=== PATIENT | male | born 1970 ===

== ENCOUNTER 2021-05-20 10:30 | Outpatient (CLI) | payer BC, SELFPAY ==
--- NOTE | 2021-05-20 10:34 | FL_ITS ---
WS: [id number] [facility] 04 23 1970 BARIUM SWALLOW TECHNIQUE: Double contrast examination was performed with Gastrografin per order. Upright and TOVAR param ges were obtained. CLINICAL INFORMATION: Dysphagia. Reflux. COMPARISON: None. FINDINGS: Swallowing: Normal. Esophagus: Mild esophageal dysmotility with slightly delayed emptying. Small hiatal hernia with reflu x esophagitis distal esophagus. Gastroesophageal reflux: Mild reflux in the supine imaging Fluoroscopy time: 2 minutes. FL/FL barium swallow gastro [id number] IMPRESSION: 1. Mild esophageal dysmotility with slightly delayed emptying. No strictures. 2. Small hiatal hernia with mild reflux in the supine position. 3. Evidence of reflux esophagitis in the distal esophagus.
[2021-05-20] MEDS: diatrizoate meglumine 120 mL Sol PO (11:13)
== END 2021-05-20 10:31 | disposition home or self-care (01) ==
LOC: RADWPI 10:32 → RAD 10:34
PROVIDERS: PCP Family Medicine; Visit Provider Family Medicine
DX: K21.00 Gastro-esophageal reflux disease with esophagitis, without bleeding (principal); R13.10 Dysphagia, unspecified; K44.9 Diaphragmatic hernia without obstruction or gangrene
CPT/HCPCS: 74220

== ENCOUNTER → 2021-07-01 15:36 | Outpatient (BNVA) | payer BC, SELFPAY | PROVIDERS: PCP Family Medicine; Visit Provider Family Medicine | DX: D75.1 Secondary polycythemia (principal); G44.229 Chronic tension-type headache, not intractable; K21.00 Gastro-esophageal reflux disease with esophagitis, without bleeding | CPT/HCPCS: 81000; 85018 ==

== ENCOUNTER → 2021-07-24 09:16 | Outpatient (BNVA) | payer BC, SELFPAY | PROVIDERS: PCP Family Medicine; Referring Provider Family Medicine; Visit Provider Podiatrist Foot & Ankle Surgery | DX: M79.89 Other specified soft tissue disorders (principal) | CPT/HCPCS: 73630 ==

== ENCOUNTER 2021-07-25 09:20 | Outpatient (CLI) | payer BC, SELFPAY ==
--- NOTE | 2021-07-25 09:30 | USCV_ITS ---
Courtney Colmenares Age: 51 Gender: M : 1970 Exam Date: 07/25/2021 09:52 Ordering Phys: Jason Willett DPM Technologist: Exam Location: [facility] [place]_ Indication: RULE OUT DVT PROCEDURES: Venous duplex imaging was performed in only the right lower extremity. The following venous structures were evaluated: common femoral vein, profunda vein, proximal portion of the greater saphenous vein, superficial femoral vein, and the popliteal vein. In addition, the posterior tibial and peroneal trunk were evaluated. Serial compression, augmentation maneuvers, and spectral Doppler flow evaluation were performed. FINDINGS: Normal 2-D Doppler and augmentation and compressibility throughout the lower extremity venous structures. Additional imaging through the proximal calf veins also reveals no thrombus. Limited evaluation of the greater saphenous vein is patent with no thrombus. CONCLUSIONS No DVT right lower extremity. Dr. Nancy Jefferson DO (Electronically Signed) Final Date: 25 July 2021 11:07 S
== END 2021-07-25 09:21 | disposition home or self-care (01) ==
LOC: RAD 09:24
PROVIDERS: PCP Family Medicine; Visit Provider Podiatrist Foot & Ankle Surgery
DX: I73.9 Peripheral vascular disease, unspecified (principal)
CPT/HCPCS: 93971

== ENCOUNTER → 2021-10-22 14:38 | Outpatient (BNVA) | payer BC, SELFPAY | PROVIDERS: PCP Family Medicine; Visit Provider Family Medicine | DX: K83.1 Obstruction of bile duct (principal); K21.00 Gastro-esophageal reflux disease with esophagitis, without bleeding | CPT/HCPCS: 80053; 82150; 85025 ==

== ENCOUNTER 2021-10-31 09:14 | Outpatient (CLI) | payer BC, SELFPAY ==
--- NOTE | 2021-10-31 11:00 | CT_ITS ---
WS: [id number] CT ABDOMEN PELVIS TECHNIQUE: Contrast-enhanced CT of the abdomen and pelvis with coronal and sagittal reformatted image s. CLINICAL INFORMATION: abdominal pain white stools COMPARISON: CT 10 13,015 DLP: [id number] scans at [facility] use at least one of these dose optimization techniques: automated e xposure control; mA and/or kV adjustment per patient size (includes targeted exams where dose is matc hed to clinical indication); or iterative reconstruction. FINDINGS: Diffuse fatty infiltration of the liver. Normal portal vein and splenic vein. Normal spleen. Normal G E junction. Lung bases are well aerated. Adrenal glands are normal. Normal renal parenchymal enhancem ent. No hydronephrosis. Small renal cysts. Adrenal glands are normal. Small fat-containing umbilical hernia. Normal appendix in the right lower quadrant. Mild right colon constipation. Normal sigmoid colon. No evidence of high-grade small or large bowel obstruction. Gallbladder is cont racted. No free fluid in the pelvis. Normal lumbar spine. CT/CT abdomen pelvis w con* [id number] IMPRESSION: 1. Mild diffuse fatty infiltration of the liver. 2. Normal caliber abdominal aorta. 3. Mild right colon constipation. 4. Normal appendix in the right lower quadrant. 5. No hydronephrosis in either kidney. Small renal cysts. 6. No abdominal or pelvic lymphadenopathy. 7. No other significant findings.
[2021-10-31] MEDS: iohexol 350 mg/mL 100 mL Btl IV (13:21)
== END 2021-10-31 09:15 | disposition home or self-care (01) ==
PROVIDERS: PCP Family Medicine; Visit Provider Family Medicine
DX: R10.9 Unspecified abdominal pain (principal); K76.0 Fatty (change of) liver, not elsewhere classified; K59.00 Constipation, unspecified; K83.1 Obstruction of bile duct
CPT/HCPCS: 74177; 80053; 82150; 85025; Q9967

== ENCOUNTER 2021-11-04 07:11 | Outpatient (CLI) | payer BC, SELFPAY ==
--- NOTE | 2021-11-04 07:15 | USCV_ITS ---
Courtney Colmenares Age: 51 Gender: M : 1970 Exam Date: 11/04/2021 07:33 Ordering Phys: Jason Willett DPM Technologist: FRENCH Exam Location: [facility] [place] Indication: HISTORY: PROCEDURES: FINDINGS: No reflux noted at this time. The veins were found to be easily compressible with spontaneous blood flow. Non pulsatile flow pattern. CONCLUSIONS No evidence of DVT in the above-mentioned identifiable veins. No significant venous reflux Relatively small caliber veins in the below-knee level Dr Jazzmine Miller MD [facility] (Electronically Signed) Final Date: 05 November 2021 00:11 S
== END 2021-11-04 07:12 | disposition home or self-care (01) ==
LOC: RAD 07:12
PROVIDERS: PCP Family Medicine; Visit Provider Podiatrist Foot & Ankle Surgery
DX: R60.0 Localized edema (principal)
CPT/HCPCS: 93971

== ENCOUNTER → 2022-05-19 11:10 | Outpatient (BNVA) | payer BC, SELFPAY | PROVIDERS: PCP Family Medicine; Visit Provider Family Medicine | DX: R33.9 Retention of urine, unspecified (principal); D75.1 Secondary polycythemia; N41.9 Inflammatory disease of prostate, unspecified | CPT/HCPCS: 80053; 81000; 84153; 85025 ==

== ENCOUNTER → 2023-08-05 10:08 | Outpatient (BNVA) | payer BC, SELFPAY | PROVIDERS: PCP Family Medicine; Visit Provider Family Medicine | DX: J18.9 Pneumonia, unspecified organism (principal); R05.9 Cough, unspecified | CPT/HCPCS: 71046 ==

== ENCOUNTER → 2024-04-18 14:48 | Outpatient (BNVA) | payer BC, SELFPAY | PROVIDERS: PCP Family Medicine; Visit Provider Family Medicine | DX: D75.1 Secondary polycythemia (principal); R53.83 Other fatigue; R55 Syncope and collapse | CPT/HCPCS: 80053; 84443; 85025 ==

== ENCOUNTER 2025-10-03 09:40 | Outpatient (CLI) | payer BC, SELFPAY ==
--- NOTE | 2025-10-03 09:46 | XRR_ITS ---
PROCEDURE INFORMATION: Exam: XR Right Shoulder Exam date and time: 10/03/2025 9:52 AM Age: 55 years old Clinical indication: Injury or trauma; Other: Strain; Work related; Swelling (edema); Right; Injury details: PT states he does heavy lifting at work that has caused RT shoulder pain that radiates down arm x one month. ; Additional info: Work related ant shoulder pain TECHNIQUE: Imaging protocol: Radiologic exam of the right shoulder. Views: 2 or more views. COMPARISON: CR XR chest 2V* [id number] 08/05/2023 10:31 AM FINDINGS: Bones/joints: Normal. Soft tissues: Normal. XR/XR shoulder RT min 2V* [id number] IMPRESSION: No acute findings.
== END 2025-10-03 09:41 | disposition home or self-care (01) ==
PROVIDERS: PCP Family Medicine; Visit Provider Family Medicine
DX: M75.31 Calcific tendinitis of right shoulder (principal)
CPT/HCPCS: 73030